=== PATIENT | male | born 1985 | race Caucasian/White ===

== ENCOUNTER 2019-04-10 14:31 | Emergency (ER) | payer BC ==
[~2019-04-10] VITALS: Ht 182.9 cm; Wt 70.3 kg
[2019-04-10] MEDS ORDERED: ALL DAY ALLERGY10 M3 PO (14:47)
[2019-04-10] MEDS ORDERED: PRILOSEC OTC20 MG PO (14:48)
[2019-04-10] MEDS ORDERED: GENVOYA TABLET1 EACH PO (14:48)
[2019-04-10] MEDS ORDERED: CIPRO500 MG PO (17:42)
[2019-04-10] MEDS ORDERED: KETO10TA2 PO (17:42)
== END 2019-04-10 17:47 | disposition home or self-care (01) ==
LOC: ER 14:31
DX: I86.1 Scrotal varices (principal); N43.2 Other hydrocele; N50.811 Right testicular pain